=== PATIENT | male | born 2005 | race Caucasian/White ===

== ENCOUNTER 2024-06-28 16:24 | Observation (INO) ==
[2024-06-28] MEDS: SODIUM CHLORIDE 0.9% 1,000 ML IV ONE (17:18)
--- NOTE | 2024-06-28 17:19 | Emergency Department Note ---
Impression & Plan Acute hyponatremia, Diarrhea, Pneumonia, Failure of outpatient treatment, Adenoviral infection ED Provider Note NAME: ALTHEA Pérez WORKMASTER AGE: 18 SEX: M : 2005 ARRIVES VIA: Walk-In INFORMANT: [Patient] ED PROVIDER(S): [Salazar Ziegler MD] CHIEF COMPLAINT: Abnormal laboratories HISTORY OF PRESENT ILLNESS: The patient is a 18-year-old male who has been sick for almost 2 weeks. The patient did see a provider at [facility] 4 days ago and was placed on Augmentin for ear infections. He had a chest x-ray that was negative and a CBC that was negative. The patient had been suffering from a cough and fever. The patient has persisted with the same symptoms. Additionally, he now has developed diarrhea, he is having loose watery stools at least 10 times a day. He states the diarrhea really started after starting the Augmentin. He has had some nausea with occasional posttussive emesis. He states he still running a temperature, he is still coughing. He felt that the diarrhea may be from his Augmentin so he stopped taking this yesterday. The patient does complain of some diffuse abdominal pain, this has also been present since starting the Augmentin. He feels weak and washed out. As he was no better, he went back to [facility] today. There, laboratory work showed a sodium of 125, he was referred to the ER. PMHx/PSHx/Social Hx: See Below PHYSICAL EXAM: GENERAL: Patient is in no acute distress. HEENT: No acute trauma, normocephalic atraumatic, mucous membranes moist, no nasal congestion. Subtle throat erythema without exudate. Both TMs have some fluid behind the drums but no drum erythema. NECK: No stridor, no adenopathy, no meningismus, trachea is midline. LUNGS: Clear to auscultation bilaterally, no wheeze, no rhonchi, breath sounds equal. Moist cough noted. HEART: Without murmurs gallops or rubs, regular rate and rhythm. ABDOMEN: Soft, nontender, no peritonitis. EXTREMITIES: No cyanosis, full range of motion of all the joints without pain or difficulty. NEUROLOGIC: Oriented x 3, no acute motor or sensory deficits, no focal weakness. SKIN: No jaundice, no diaphoresis. DIFFERENTIAL DIAGNOSIS: Bronchitis or pneumonia, viral illness, C. difficile colitis, bacterial or viral intestinal infection, medication reaction, electrolyte imbalance, dehydration, among others. EMERGENCY DEPARTMENT PROCEDURES: MEDICAL DECISION MAKING: There is no leukocytosis or concerning anemia. There is a normal platelet count. No bandemia. Sodium is low at 129. No renal failure. No worrisome liver enzyme elevation. The patient appeared to be in a euthyroid state. Respiratory bio fire was positive for adenovirus. Chest x-ray shows a left lung pneumonia. Stool C. difficile and stool culture results are not yet available. Urinalysis results are not yet available. On exam, the patient was complaining of some fatigue. He was not toxic, he was not febrile. Patient received IV saline, 1 L. He was given IV ceftriaxone and IV Zithromax for his pneumonia. Patient has failed outpatient treatment. He is still coughing and running fevers. He is now hyponatremic. He is dehydrated. He has developed significant diarrhea, possibly from the Augmentin prescribed last week. Given the findings and the outpatient treatment failure, admission is warranted. I spoke with the patient and disability case manager. The on-call hospitalist was consulted. Prior/Outside records/notes reviewed: Outpatient [facility] notes describing his presentation, findings and need for ED referral. ECG per my interpretation: Indication was hyponatremia. The ECG shows a normal sinus rhythm with a rate of 75. There is no ST elevation, no PVCs. The QTc is 451. Continuous Cardiac Monitoring per my interpretation: An order was placed for continuous cardiac monitoring. The monitor shows a rate of 74 with normal sinus rhythm. Imaging/x-ray results per my interpretation: Chest x-ray appears to show a left lower lung pneumonia. Chronic Medical/Social conditions affecting care: None Care/Management discussed with: Case management and the on-call hospitalist. Level of care consideration(s): After review of the information above and other included data: --I believe the patient requires escalation of care to admission DISPOSITION: Admission Past Med/Surg History Problem List (Updated 06/28/24 @ 18:43 by Salazar Ziegler MD) Adenoviral infection (Acute) Failure of outpatient treatment (Acute) Pneumonia (Acute) Diarrhea (Acute) Acute hyponatremia (Acute) Medical History No significant medical problems Social History Smoking Status: Never smoker Feels Safe at Home: Yes Allergies Allergies Allergy/AdvReac Type Severity Reaction Status Date / Time No Known Allergies Allergy Unverified 06/28/24 17:17 Home Meds Home Medications Medication Instructions Recorded Confirmed No Known Home Medications 06/28/24 06/28/24 Results & Data (ED) Vital Signs Vital Signs - 24 hr 06/28/24 16:37 06/28/24 17:03 06/28/24 17:06 Temperature 36.9 C Temperature Source Temporal Artery Scan Pulse Rate 88 74 80 Pulse Rate [Apical] Pulse Rate from SpO2 Sensor 80 Respiratory Rate 18 15 Respiratory Effort / Characteristics Non-Labored Respiratory Depth Normal Respiratory Pattern Regular Blood Pressure 119/83 106/72 Blood Pressure [Right Arm] Blood Pressure Mean 95 83 Blood Pressure Mean [Right Arm] Pulse Oximetry 97 97 Oxygen Delivery Method Room Air Sepsis Recent Fever Within 48 Hours No Sepsis New/Unexplained Change in Mental Status N/A Sepsis Action Taken by Nursing No Action Required 06/28/24 18:13 Temperature Temperature Source Pulse Rate Pulse Rate [Apical] 82 Pulse Rate from SpO2 Sensor Respiratory Rate 18 Respiratory Effort / Characteristics Respiratory Depth Normal Respiratory Pattern Blood Pressure Blood Pressure [Right Arm] 121/77 Blood Pressure Mean Blood Pressure Mean [Right Arm] 91 Pulse Oximetry 93 Oxygen Delivery Method Room Air Sepsis Recent Fever Within 48 Hours Sepsis New/Unexplained Change in Mental Status Sepsis Action Taken by Correction Medications Current Medication List: was personally reviewed by me Laboratory Data Attestation: I reviewed the patient's lab results. 06/28/24 16:58 06/28/24 16:58 Lab Results 06/28/24 06/28/24 Range/Units 16:58 17:11 WBC 8.20 (4.8-10.8) K/ul RBC 6.06 (4.70-6.10) M/uL Hgb 17.0 (14.0-18.0) g/dl Hct 48.0 (42.0-52.0) % MCV 79.2 L (80.0-100.0) fL MCH 28.1 (25.0-34.0) pg MCHC 35.4 (32.0-36.0) g/dL RDW Std Deviation 33.2 L (36.4-46.3) fL RDW Coeff of Leena 11.7 (11.5-14.5) % Plt Count 144 (130-400) K/uL MPV 11.8 (9.4-12.4) fL Immature Gran % (Auto) 0.4 % Neut % (Auto) 76.1 % Lymph % (Auto) 15.9 % [place] % (Auto) 7.4 % Eos % (Auto) 0.0 % Baso % (Auto) 0.2 % Neut # (Auto) 6.24 (1.40-6.50) K/uL Lymph # (Auto) 1.30 (1.20-3.40) K/uL [place] # (Auto) 0.61 H (0.11-0.59) K/uL Eos # (Auto) 0.00 (0.00-0.50) K/uL Baso # (Auto) 0.02 (0.00-0.20) K/uL Immature Gran # (Auto) 0.03 (0.01-0.20) K/uL Sodium 129 L (136-145) mmol/L Potassium 3.7 (3.5-5.1) mmol/L Chloride 91 L (98-107) mmol/L Carbon Dioxide 31 (21-32) mmol/L Anion Gap 7 (3-11) BUN 12 (6-23) mg/dl Creatinine 1.06 (0.6-1.4) mg/dl Est Cr Clr Drug Dosing 101.2 ml/min eGFR 103.68 BUN/Creatinine Ratio 11.3 (10-20) Glucose 108 H (70-99(Fasting)) mg/dl Calcium 9.4 (8.6-10.3) mg/dl Phosphorus 3.7 (2.5-4.9) mg/dl Magnesium 2.1 (1.7-2.4) mg/dl Total Bilirubin 0.7 (0.2-1.0) mg/dl AST 51 H (13-39) U/L ALT 26 (7-52) U/L Alkaline Phosphatase 39 (34-104) U/L Total Protein 8.3 (6.0-8.3) gm/dl Albumin 4.5 (3.4-5.0) gm/dl Globulin 3.8 (2.5-4.0) gm/dl Albumin/Globulin Ratio 1.2 (0.9-2) TSH 3.133 (0.300-4.500) uIu/ml Adenovirus (PCR) DETECTED A (NotDetected) B. pertussis DNA (PCR) Not Detected (NotDetected) B.parapertussis DNA PCR Not Detected (NotDetected) C. pneumoniae DNA (PCR) Not Detected (NotDetected) Coronavirus OC43 (PCR) Not Detected (NotDetected) Coronavirus HKU1 (PCR) Not Detected (NotDetected) Coronavirus 229E (PCR) Not Detected (NotDetected) SARS-CoV-2 (PCR) Not Detected (NotDetected) Coronavirus NL63 (PCR) Not Detected (NotDetected) Human Metapneumovir PCR Not Detected (NotDetected) Influenza Type A (PCR) Not Detected (NotDetected) Influenza Type B (PCR) Not Detected (NotDetected) M. pneumoniae (PCR) Not Detected (NotDetected) Parainfluenza 1 (PCR) Not Detected (NotDetected) Parainfluenza 2 (PCR) Not Detected (NotDetected) Parainfluenza 3 (PCR) Not Detected (NotDetected) Parainfluenza 4 (PCR) Not Detected (NotDetected) RSV (PCR) Not Detected (NotDetected) Entero/Rhino (PCR) Not Detected (NotDetected) Administered Medications Discontinued Medications Sodium Chloride (Nss) 1,000 mls @ 999 mls/hr IV .Q1H1M ONE Stop: 06/28/24 18:04 Last Admin: 06/28/24 17:18 Dose: 999 mls/hr Documented By: BÁRBARA Ceftriaxone Sodium (Rocephin) 2,000 mg in 50 mls @ 100 mls/hr IV NOW STA Stop: 06/28/24 18:30 Last Admin: 06/28/24 18:11 Dose: 100 mls/hr Documented By: SILVIO Imaging Data Radiologist's Impression: Chest X-Ray 06/28/24 17:14 Clinical History: Cough Technique: A frontal view of the chest was obtained Findings: There is left lower lung alveolar consolidation. The heart size is within normal limits. No pleural effusion or pneumothorax is seen. The right lung appears clear No fracture is noted. No foreign body is seen Impression: Left lung pneumonia ACT 112: Positive. There are findings on this exam that require communication between the performing entity and the patient following Patient Test Result Information Act ([place] ACT 112) guidelines. Electronically signed by Anibal Ellison 06-28-2024 5:55 PM Discharge Plan Visit Data Chief Complaint: Abnormal Labs/Diagnostic Testing Stated Complaint: REF BY [facility],NEEDS AN IV ED Provider: Salazar Ziegler Discharge Problem: Acute hyponatremia, Diarrhea, Pneumonia, Failure of outpatient treatment, Adenoviral infection Patient Disposition: Admitted As Inpatient Condition: Fair Forms Stand Alone Forms: [id number] Prescriptions Prescriptions: No Action No Known Home Medications Referrals Referrals: PCP,NO [Physician] - Discharge Problem: Diarrhea Qualifiers: Diarrhea type: unspecified type Qualified Code(s): R19.7 - Diarrhea, unspecified Pneumonia Qualifiers: Pneumonia type: due to unspecified organism Laterality: left Lung location: l ower lobe of lung Qualified Code(s): J18.9 - Pneumonia, unspecified organism
[2024-06-28 17:29] LABS: Mean Corpuscular Hemoglobin 28.1 pg (25.0-34.0); Mean Corpuscular Hgb Conc 35.4 g/dL (32.0-36.0); Mean Corpuscular Volume 79.2 fL (80.0-100.0); Mean Platelet Volume 11.8 fL (9.4-12.4); Platelet Count 144 K/uL (130-400); RDW Coefficient of Variation 11.7 % (11.5-14.5); RDW Standard Deviation 33.2 fL (36.4-46.3); Red Blood Count 6.06 M/uL (4.70-6.10)
[2024-06-28 17:30] LABS: Albumin Globulin Ratio 1.2 (0.9-2); Albumin Level 4.5 gm/dl (3.4-5.0); BUN Creatinine Ratio 11.3 (10-20); Bilirubin,Total 0.7 mg/dl (0.2-1.0); Calcium 9.4 mg/dl (8.6-10.3); Creatinine Clr Calc Pharmacy 101.2 ml/min; Globulin 3.8 gm/dl (2.5-4.0); Magnesium 2.1 mg/dl (1.7-2.4); Phosphorus 3.7 mg/dl (2.5-4.9); Potassium 3.7 mmol/L (3.5-5.1); Total Protein 8.3 gm/dl (6.0-8.3)
[2024-06-28 17:36] LABS: Basophils # (auto) 0.02 K/uL (0.00-0.20); Basophils % (auto) 0.2 %; Immature Granulocytes # (auto) 0.03 K/uL (0.01-0.20); Immature Granulocytes % (auto) 0.4 %; Lymphocytes % (auto) 15.9 %; Monocytes # (auto) 0.61 K/uL (0.11-0.59); Monocytes % (auto) 7.4 %; Neutrophils # (auto) 6.24 K/uL (1.40-6.50); Neutrophils % (auto) 76.1 %
[2024-06-28 17:44] LABS: Thyroid Stimulating Hormone 3.133 uIu/ml (0.300-4.500)
--- NOTE | 2024-06-28 17:56 | XRay Report ---
Clinical History: Cough Technique: A frontal view of the chest was obtained Findings: There is left lower lung alveolar consolidation. The heart size is within normal limits. No pleural effusion or pneumothorax is seen. The right lung appears clear No fracture is noted. No foreign body is seen Impression: Left lung pneumonia ACT 112: Positive. There are findings on this exam that require communication between the performing entity and the patient following Patient Test Result Information Act ([place] ACT 112) guidelines. Electronically signed by Anibal Ellison 06-28-2024 5:55 PM
[2024-06-28] MEDS: cefTRIAXone SODIUM 2,000 MG/50 ML BAG IV STA (18:11)
[2024-06-28 18:20] LABS: Adenovirus PCR DETECTED (NotDetected); Bordetella parapertussis PCR Not Detected (NotDetected); Bordetella pertussis PCR Not Detected (NotDetected); Chlamydia pneumoniae PCR Not Detected (NotDetected); Coronavirus 229E PCR Not Detected (NotDetected); Coronavirus CoV-2 (COVID19)PCR Not Detected (NotDetected); Coronavirus HKU1 PCR Not Detected (NotDetected); Coronavirus NL63 PCR Not Detected (NotDetected); Coronavirus OC43PCR Not Detected (NotDetected); Human Metapneumovirus PCR Not Detected (NotDetected); Influenza A PCR Not Detected (NotDetected); Influenza B PCR Not Detected (NotDetected); Mycoplasma pneumoniae PCR Not Detected (NotDetected); Parainfluenza Virus 1 PCR Not Detected (NotDetected); Parainfluenza Virus 2 PCR Not Detected (NotDetected); Parainfluenza Virus 3 PCR Not Detected (NotDetected); Parainfluenza Virus 4 PCR Not Detected (NotDetected); Respiratory Syncytial VirusPCR Not Detected (NotDetected); Rhinovirus/Enterovirus PCR Not Detected (NotDetected)
[2024-06-28 18:42] LABS: Appearance Urine Clear (Clear); Bacteria Urine Automated None Seen (None Seen); Bilirubin Urine Negative (Negative); Blood Urine Trace (Negative); Cast Urine Automated 0-2 /lpf (0-2); Color Urine Yellow; Epithelial Cell Urine Auto 0-2 /hpf (0-2); Glucose Urine UA Negative (Negative); Ketones Urine Negative (Negative); Leukocyte Esterase Urine Negative (Negative); Nitrite Urine Negative (Negative); Protein Urine Negative (Negative); RBC Urine Automated 0-2 /hpf (0-2); Specific Gravity Urine 1.004 (1.000-1.030); Urobilinogen Urine Negative (Negative); WBC Urine Automated 0-5 /hpf (0-5)
--- NOTE | 2024-06-28 18:48 | History & Physical Report ---
Date of Service June 28, 2024 Assessment & Plan (1) Adenoviral infection: (2) Failure of outpatient treatment: (3) Pneumonia: (4) Acute hyponatremia: (5) Diarrhea: Plan 1) Pneumonia/ adenovirus infection - positive adenovirus infection on [employer] resp viral panel - CXR: left lung pneumonia - ceftriaxone, 2 g, q24hrs, IV 2) Diarrhea/ hyponatremia - LR, 125 mL/hr, IV, q8hr - stool panel pending, CBC AM labs - regular diet as tolerated 3) Transaminitis AST, 51; ALT, 26 (WNL) - CMP AM labs Code status: Full code Disposition: Med-Surg FENGI: regular VTE Prophylaxis: ambulation History of Present Illness Chief Complaint: Dyspnea Primary Care Provider: [facility] Patient started having diarrhea on , 4 days, ~ 10 episodes/day, and dyspnea the past few days. Patient notes he started coughing badly a few weeks ago. Patient feels like he has a lot of chest congestion but denies any in creased sputum production. Patient notes some chest pain when taking deep breaths in the center of the chest, denying palpitations. Patient endorses some post-tussive vomiting w/out nausea but denies abdominal pain, just noting some cramping associated w/ the diarrhea. Patient was prescribed Augmentin on at [facility] but stopped taking it on Friday because he felt like it wasn't working. Allergies Allergy/AdvReac Type Severity Reaction Status Date / Time No Known Allergies Allergy Unverified 06/28/24 17:17 Home Medications Medication Instructions Recorded Confirmed Type No Known Home Medications 06/28/24 06/28/24 History Past Med/Surg History Problem List (Updated 06/28/24 @ 18:43 by Salazar Ziegler MD) Adenoviral infection (Acute) Failure of outpatient treatment (Acute) Pneumonia (Acute) Diarrhea (Acute) Acute hyponatremia (Acute) Medical History No significant medical problems Social History Smoking Status: Never smoker Feels Safe at Home: Yes Review of Systems Constitutional: + fever (as high as 102.7 F), + chills, + body aches and + fatigue Ear, Nose, Mouth, Throat: + sore throat; no nasal congestion, no n river discharge and no sinus pain/pressure Respiratory: + cough, + chest congestion and + dyspne a; no hemoptysis and no wheezing Cardiovascular: + chest pain (w/ deep breaths); no palpi tations and no lightheadedness Gastrointestinal: + vomiting and + diarrhea/loose stools; no abdominal pain and no nausea diarrhea seems to have resolved over the last 4 hrs Genitourinary: no urinary frequency Neurologic: + headache(s); no tingling and no numbne ss Physical Exam Constitutional: WD/WN, vitals as above Respiratory: normal respiratory effort and + cough Auscultation: + crackles (base of the left lungs posteriorly); no wheezes Cardiovascular: RRR, no murmur, no edema Gastrointestinal (Abdomen): Inspection/Auscultation: abdomen normal to inspection and normal bowel sounds; abdomen not distended Percussion/Palpation: + abdomen tender Psychiatric: A+Ox3, euthymic affect Results & Data Results & Data Vital Signs (Past 12 Hours) Vital Signs Temp Pulse Pulse Resp BP BP Pulse Ox 06/28/24 18:13 82 18 121/77 93 06/28/24 17:06 80 15 106/72 97 06/28/24 17:03 74 06/28/24 16:37 36.9 C 88 18 119/83 97 O2 Del Method 06/28/24 18:13 Room Air 06/28/24 17:06 06/28/24 17:03 06/28/24 16:37 Room Air Diagnostic Findings Chest X-Ray 06/28/24 17:14 Clinical History: Cough Technique: A frontal view of the chest was obtained Findings: There is left lower lung alveolar consolidation. The heart size is within normal limits. No pleural effusion or pneumothorax is seen. The right lung appears clear No fracture is noted. No foreign body is seen Impression: Left lung pneumonia ACT 112: Positive. There are findings on this exam that require communication between the performing entity and the patient following Patient Test Result Information Act ([place] ACT 112) guidelines. Electronically signed by Anibal Ellison 06-28-2024 5:55 PM Supervising Physician Co-Signing Physician Notes I personally examined the patient and verified all abrams points of history and exam, discussed case, and agree with decision making with Dr Yarbrough feeling somewhat short of breath. Some coughing fits. About 10 episodes of diarrhea a day since starting the Augmentin, although no diarrhea since coming to the ER. Sent here because of low sodium. Vitals noted, in general he is awake and alert pleasant no distress. HEENT normocephalic atraumatic mucous membranes moist. Breathing unlabored no accessory muscle use good effort, coughing fit while in the room. Labs and diagnostics noted. Left lower lobe community-acquired pneumonia, antibiotic associated diarrhea, subsequent hyponatremiaswitch to IV antibiotics, check C. difficile, IV fluids, supportive care. Follow labs, anticipate rapid improvement. (3) Pneumonia Laterality: left Lung location: lower lobe of lung Pneumonia type: due to unspecified organism Qualified Code(s): J18.9 - Pneumonia, unspecified organism (5) Diarrhea Diarrhea type: unspecified type Qualified Code(s): R19.7 - Diarrhea, unspecified
[2024-06-28] MEDS: AZITHROMYCIN 500 MG/255 ML BAG IV ONE (19:17)
--- NOTE | 2024-06-28 19:44 | Billing Data ---
Date of Service June 28, 2024 Coding Level of Care Code 37050 INT INP/OBS CARE
[2024-06-28] MEDS ORDERED: ALUMINUM/MAGNESIUM SUSP 30 ML UDC PO PRN (22:12)
[2024-06-28] MEDS ORDERED: MAGNESIUM HYDROXIDE SUSP 30 ML UDC PO PRN (22:12)
[2024-06-28] MEDS ORDERED: POLYETHYLENE (MIRALAX) 17 GM PACK PO PRN (22:12)
[2024-06-28] MEDS ORDERED: MELATONIN 3 MG TAB PO PRN (22:12)
[2024-06-28] MEDS ORDERED: ONDANSETRON INJ 2 MG/ML 2 ML VIAL IV PRN (22:12)
[2024-06-28] MEDS: ACETAMINOPHEN 325 MG TAB PO PRN (22:26)
[2024-06-28] MEDS: LACTATED RINGER'S 1,000 ML IV SCH (22:26)
[2024-06-28 23:47] LABS: Adenovirus F 40/41 PCR Not Detected (NotDetected); Astrovirus PCR Not Detected (NotDetected); Campylobacter PCR Not Detected (NotDetected); Cryptosporidium PCR Not Detected (NotDetected); Cyclospora cayetanensis PCR Not Detected (NotDetected); Entamoeba histolytica PCR Not Detected (NotDetected); Enteroaggregative E.coli(EAEC) Not Detected (NotDetected); Enteropathogenic E.coli (EPEC) Not Detected (NotDetected); Enterotoxigenic E.coli (ETEC) Not Detected (NotDetected); Giardia lamblia PCR Not Detected (NotDetected); Norovirus GI/GII PCR Not Detected (NotDetected); Plesiomonas shigelloides PCR Not Detected (NotDetected); Rotavirus A PCR Not Detected (NotDetected); Salmonella PCR Not Detected (NotDetected); Sapovirus PCR Not Detected (NotDetected); Shiga-like Toxin E.coli (STEC) Not Detected (NotDetected); Shigella/Enteroinvasive E.coli Not Detected (NotDetected); Vibrio cholerae PCR Not Detected (NotDetected); Vibrio species PCR Not Detected (NotDetected); Yersinia enterocolitica PCR Not Detected (NotDetected)
[2024-06-29] MEDS: COUGH DROP (SUGAR FREE) LOZ 24 LOZ/1 BOX BUCCAL ONE (06:03)
[2024-06-29 06:18] LABS: Albumin Globulin Ratio 1.3 (0.9-2); Albumin Level 3.5 gm/dl (3.4-5.0); BUN Creatinine Ratio 12.9 (10-20); Bilirubin,Total 0.4 mg/dl (0.2-1.0); Calcium 8.1 mg/dl (8.6-10.3); Creatinine Clr Calc Pharmacy 126.1 ml/min; Globulin 2.8 gm/dl (2.5-4.0); Potassium 3.7 mmol/L (3.5-5.1); Total Protein 6.3 gm/dl (6.0-8.3)
[2024-06-29] MEDS: guaiFENesin/DEXTROM SYRUP 200MG/20MG 10ML UDC PO PRN (06:32)
[2024-06-29 06:47] LABS: Hematocrit (blood only) 39.8 % (42.0-52.0); Hemoglobin 14.1 g/dl (14.0-18.0); Mean Corpuscular Hemoglobin 28.4 pg (25.0-34.0); Mean Corpuscular Hgb Conc 35.4 g/dL (32.0-36.0); Mean Corpuscular Volume 80.1 fL (80.0-100.0); Mean Platelet Volume 12.5 fL (9.4-12.4); Platelet Count 124 K/uL (130-400); RDW Coefficient of Variation 11.9 % (11.5-14.5); RDW Standard Deviation 34.3 fL (36.4-46.3); Red Blood Count 4.97 M/uL (4.70-6.10); White Blood Count 7.32 K/ul (4.8-10.8)
[2024-06-29 06:51] LABS: Basophils # (auto) 0.01 K/uL (0.00-0.20); Basophils % (auto) 0.1 %; Echinocytes 2+; Immature Granulocytes # (auto) 0.03 K/uL (0.01-0.20); Immature Granulocytes % (auto) 0.4 %; Lymphocytes # (auto) 1.08 K/uL (1.20-3.40); Lymphocytes % (auto) 14.8 %; Monocytes # (auto) 0.65 K/uL (0.11-0.59); Monocytes % (auto) 8.9 %; Neutrophils # (auto) 5.55 K/uL (1.40-6.50); Neutrophils % (auto) 75.8 %; Ovalocytes 1+
--- NOTE | 2024-06-29 07:24 | Hospitalist Progress Note ---
Date of Service June 29, 2024 Assessment & Plan (1) Adenoviral infection: (2) Failure of outpatient treatment: (3) Pneumonia: (4) Acute hyponatremia: (5) Diarrhea: Plan 1) Pneumonia/ adenovirus infection - positive adenovirus infection on [employer] resp viral panel - CXR: left lung pneumonia --> consider repeat CXR tomorrow considering - continue ceftriaxone, 2 g, q24hrs, IV while inpatient - plan to discharge on Cefdinir 2) Diarrhea/ hyponatremia/borderline hypocalcemia - LR, 125 mL/hr, IV, q8hr - Na, 129 --> 131; Ca(c), 8.9 - stool panel, davidson-negative - regular diet as tolerated - repeat BMP tomorrow 3) Thrombocytopenia - Plts, 144 --> 124 - repeat CBC tomorrow 4) Transaminitis, improving AST, 51 --> 41; ALT, 26 --> 21 (WNL) 5) Hematuria - trace blood in urine upon admission - likely d/t myoglobin in urine, possibly from very mild rhabdo associated with illness Code status: Full code Disposition: Med-Surg FENGI: regular VTE Prophylaxis: ambulation Admission and Anticipated Discharge Date Admission Date: June 28, 2024 Supervising Physician Co-Signing Physician Notes I personally examined the patient and verified all abrams points of history and exam, discussed case, and agree with decision making with Dr Yarbrough feeling better but not yet well enough to go home. Vitals noted, in general he is awake and alert pleasant no distress. HEENT normocephalic atraumatic mucous membranes moist. Breathing unlabored no accessory muscle use good effort, L lower lung diminished w faint wheeze no rales no rhonchi. Labs and diagnostics noted. Left lower lobe community-acquired pneumonia, antibiotic associated diarrhea, subsequent hyponatremiaimproving. continue rocephin, IV fluids. repeat CXR (PA and lateral) in AM. hopefully home in AM Subjective Patient was seen and evaluated this morning. Was feeling much better than yesterday in terms of his respiratory symptoms and generalized weakness but his diarrhea had started again yesterday evening and patient is close to 10 episodes/day like he was prior to admission. Did not feel any fevers, chills, or sweats overnight. Review of Systems Constitutional: + fever (as high as 102.7 F), + chills, + body aches and + fatigue Ear, Nose, Mouth, Throat: + sore throat; no nasal congestion, no n river discharge and no sinus pain/pressure Respiratory: + cough, + chest congestion and + dyspne a (improving); no hemoptysis and no wheezing Cardiovascular: + chest pain (w/ deep breaths); no palpi tations and no lightheadedness Gastrointestinal: + diarrhea/loose stools; no abdominal pa in and no nausea diarrhea still w/ 10 episodes/day Genitourinary: no urinary frequency Neurologic: + headache(s); no tingling and no numbne ss Physical Exam Constitutional: WD/WN, vitals as above Respiratory: normal respiratory effort, + labored breathing and + cough Auscultation: + crackles (base of the left lungs posteriorly) and + wheezes (left base of lungs) Cardiovascular: RRR, no murmur, no edema Gastrointestinal (Abdomen): Inspection/Auscultation: abdomen normal to inspection and normal bowel sounds; abdomen not distended Percussion/Palpation: + abdomen tender Psychiatric: A+Ox3, euthymic affect Results & Data Results & Data Vital Signs (Past 12 Hours) Vital Signs Temp Pulse Pulse Pulse Resp BP BP 06/28/24 23:42 37.6 C H 85 06/28/24 22:37 06/28/24 22:20 38.1 C H 106 H 18 107/72 06/28/24 21:40 72 122/67 06/28/24 21:01 92 H 06/28/24 21:00 98 H 21 110/72 Pulse Ox O2 Del Method 06/28/24 23:42 95 Room Air 06/28/24 22:37 Room Air 06/28/24 22:20 97 Room Air 06/28/24 21:40 95 Room Air 06/28/24 21:01 06/28/24 21:00 95 Room Air (3) Pneumonia Laterality: left Lung location: lower lobe of lung Pneumonia type: due to unspecified organism Qualified Code(s): J18.9 - Pneumonia, unspecified organism (5) Diarrhea Diarrhea type: unspecified type Qualified Code(s): R19.7 - Diarrhea, unspecified
[2024-06-29 08:01] VITALS: RESP 16
[2024-06-29] MEDS: LOPERAMIDE HCL 2 MG CAP PO PRN (10:13)
[2024-06-29] MEDS: cefTRIAXone SODIUM 2,000 MG/50 ML BAG IV SCH (17:16)
--- NOTE | 2024-06-29 18:31 | Billing Data ---
Date of Service June 29, 2024 Coding Level of Care Code 73133 SUB INP/OBS CARE
[2024-06-29 21:56] VITALS: TEMP 98.1
--- NOTE | 2024-06-29 22:22 | Electrocardiogram Report ---
Test Reason : Blood Pressure : */* mmHG Vent. Rate : 75 BPM Atrial Rate : 75 BPM P-R Int : 176 ms QRS Dur : 100 ms QT Int : 404 ms P-R-T Axes : 65 82 46 degrees QTcB Int : 451 ms Normal sinus rhythm Normal ECG No previous ECGs available Confirmed by Jordan Sandoval ([id number]) on 06/29/2024 10:21:40 PM [facility] By: [facility] Confirmed By: Jordan Sandoval
[2024-06-30 06:10] LABS: Hematocrit (blood only) 40.6 % (42.0-52.0); Hemoglobin 13.9 g/dl (14.0-18.0); Mean Corpuscular Hemoglobin 28.1 pg (25.0-34.0); Mean Corpuscular Hgb Conc 34.2 g/dL (32.0-36.0); Platelet Count 121 K/uL (130-400); RDW Coefficient of Variation 12.4 % (11.5-14.5); Red Blood Count 4.95 M/uL (4.70-6.10); White Blood Count 4.83 K/ul (4.8-10.8)
[2024-06-30 06:25] LABS: BUN Creatinine Ratio 14.1 (10-20); Calcium 8.3 mg/dl (8.6-10.3); Potassium 3.8 mmol/L (3.5-5.1)
[2024-06-30 06:55] VITALS: BP 102/67; PULSE 71; O2SAT 97
--- NOTE | 2024-06-30 07:27 | Discharge Summary ---
Date of Service June 30, 2024 Admission HPI Per Admitting Provider Patient started having diarrhea on , 4 days, ~ 10 episodes/day, and dyspnea the past few days. Patient notes he started coughing badly a few weeks ago. Patient feels like he has a lot of chest congestion but denies any increased sputum production. Patient notes some chest pain when taking deep breaths in the center of the chest, denying palpitations. Patient endorses some post-tussive vomiting w/out nausea but denies abdominal pain, just noting some cramping associated w/ the diarrhea. Patient was prescribed Augmentin on at [facility] but stopped taking it on Friday because he felt like it wasn't working. This morning the patient continues to feel better when compared to admission, notes less coughing and fewer diarrhea episodes overnight which allowed him to sleep a lot better. Patient feels like today he's ready for discharge if we feel that he's ready. Prefers to have his meds sent to [facility] Admission Exam Per Admitting Provider Physical Exam Constitutional: WD/WN, vitals as above Respiratory: normal respiratory effort and + cough Auscultation: + crackles (base of the left lungs posteriorly); no wheezes Cardiovascular: RRR, no murmur, no edema Gastrointestinal (Abdomen): Inspection/Auscultation: abdomen normal to inspection and normal bowel sounds; abdomen not distended Percussion/Palpation: + abdomen tender Psychiatric: A+Ox3, euthymic affect Principal Diagnosis Pneumonia Hyponatremia (resolved) Discharge Exam Constitutional WD/WN, vitals as above Respiratory normal respiratory effort and + cough Auscultation: + crackles (base of the left lungs posteriorly) and + wheezes (left base of lungs) Cardiovascular RRR, no murmur, no edema Gastrointestinal (Abdomen) Inspection/Auscultation: abdomen normal to inspection and normal bowel sounds; abdomen not distended Percussion/Palpation: + abdomen tender Psychiatric A+Ox3, euthymic affect Discharge Data Allergies Allergy/AdvReac Type Severity Reaction Status Date / Time No Known Allergies Allergy Unverified 06/28/24 17:17 Consultations 06/28/24 18:08 ED Decision to Admit Stat Hospital Course (1) Adenoviral infection: (2) Failure of outpatient treatment: (3) Pneumonia: (4) Acute hyponatremia: (5) Diarrhea: Plan 1) Pneumonia/ adenovirus infection - positive adenovirus infection on [employer] resp viral panel - CXR: left lower lobe lung pneumonia --> repeat CXR this morning showed interval improvement - continued ceftriaxone, 2 g, q24hrs, IV while inpatient - Discharged patient on Cefdinir, 300 mg, PO, BID, for 5 days - Discharged patient on Albuterol, 1 inhalation/90 mcg, q6hr, PRN for dyspnea (d/t specific pt request) 2) Diarrhea/ hyponatremia/borderline hypocalcemia #resolved - LR, 125 mL/hr, IV, q8hr - Na, 129 --> 131 --> 138; Ca(c), 8.9 - stool panel, davidson-negative 3) Thrombocytopenia - Plts, 144 --> 124 --> 121 - repeat CBC as outpt in a week 4) Transaminitis, improving AST, 51 --> 41; ALT, 26 --> 21 (WNL) -repeat CMP as outpt in a week 5) Hematuria - trace blood in urine upon admission - likely d/t myoglobin in urine, possibly from very mild rhabdo associated with illness Total Time Total Time Spent Total Time Spent (In Minutes): see attending attestation Discharge Plan Discharge Items Patient Disposition: Home - Self-Care Reason For Visit: CAP, HYPONATREMIA Discharge Diagnosis: pneumonia, adenoviral infection Condition on Discharge: Fair Activity: Resume your previous activity Non-emergency contact: Primary Care Provider Call non-emergency contact if: you have any medication questions and your symptoms worsen Follow-up/Referrals: [facility] [Primary Care Provider] - Diet: Regular Addtl Attending Provider Instructions: You were admitted to the hospital for hyponatremia in the context of a pneumonia and a diarrheal illness. You were treated with IV ceftriaxone and IV fluids. A discharge summary will be sent to your primary care physician to ensure continuity of care. Please bring this discharge summary with you to your next office appointment so that your provider can review it at that time. Follow-up appointments: Make a follow-up appointment with your PCP within the next week. It is very important that you follow up with them shortly after discharge from the hospital. You will need to make sure you tell your PCP to do the following lab work when you see them: 1) CBC and a CMP. 2) You will also need to have your PCP order you a chest X-ray 3-4 weeks after discharge to monitor that the pneumonia and chest X-ray opacity associated with it has completely resolved. Medications: Your medication list has been reviewed and reconciled upon discharge to ensure accuracy and continuity of care. An updated list of all your medications is incl uded with your hospital discharge paperwork. Please review this list closely, and make note of any changes. We sent a new medication called Cefdinir to your pharmacy. Take Cefdinir, 300 mg, PO, BID, for 5 days. We sent a new medication called albuterol to your pharmacy. Take albuterol, 1 inh/90 mcg, q6hr, for shortness of breath. Take your medications as instructed; do not skip a dose of your medicines. Make sure all of your doctors know every medicine you are taking (including vnlw-dpg-tftnvrv medicines, vitamins, and supplements). Call your primary care provider before taking any new medicines (including luyy-ale-cqxrvmv medicines, vitamins, and supplements), because some of these may interact with your current medications, or may make your symptoms worse. Tell your primary care provider if you cannot afford your medications. CONTACT YOUR PRIMARY CARE PROVIDER if you experience any of the following: unresolved diarrhea, any easy bruising or bleeding continued shortness of breath, wheezing, fatigue Difficulty following your treatment plan, or difficulty taking medications CALL 911 OR GO TO THE EMERGENCY DEPARTMENT if you experience any of the following: Sudden, severe abdominal pain or nausea/vomiting Severe chest pain, or chest pain that radiates (moves) to your jaw or arm Sudden, severe shortness of breath or difficulty breathing Thank you for allowing us to participate in your care Pending Studies at Discharge: No Stand-Alone Forms: [facility], Work/School Release, Smoking Cessation Medications and DC Order Prescriptions: New cefdinir 300 mg capsule 300 mg PO Q12H 5 Days Qty: 10 0RF albuterol sulfate 90 mcg/actuation HFA aerosol inhaler 1 inh inhalation Q6H PRN (Reason: shortness of breath or wheezing) Qty: 6.7 0RF Discharge Orders: Discharge Order (Routine); Ordered 06/30/24 Ordered By: Donn Navarro/Other Patient Handouts: What Is Pneumonia?, Treating Pneumonia, When You Have Pneumonia Admission Data Admit Date/Time: 06/28/24 20:31 Attending Provider: Pablo Duffy Admit Provider: Pablo Duffy Primary Care Provider: [facility] Other Providers: Pablo Duffy Other Interventions: Discharge Summary Assessment (RN) Last Done: 06/30/24 10:56 Supervising Physician Co-Signing Physician Notes I personally examined the patient and verified all abrams points of history and exam, discussed case, and agree with decision making with Dr Yarbrough feels up to going home. Vitals noted, in general he is awake and alert pleasant no distress. HEENT normocephalic atraumatic mucous membranes moist. Breathing unlabored no accessory muscle use good effort. skin no rashes no pallor or icterus. CXR noted. Left lower lobe community-acquired pneumonia, antibiotic associated diarrhea, subsequent hyponatremiaimproving. finish PO abx. labs (CBC, CMP) and f/u CXR as outpt - likely all due to acute illness with mixed viral and secondary bacterial etiology - but will want to track to resolution for completeness otherwise as above
--- NOTE | 2024-06-30 09:08 | XRay Report ---
XR chest 2V PA/lateral CLINICAL HISTORY: f/u pneumonia COMPARISON STUDY: 06/28/2024 FINDINGS: Heart size and pulmonary vasculature are normal. There is patchy and hazy opacity at the le ft lower lung which is mildly improved. No other consolidation or pleural effusion. No pneumothorax. IMPRESSION: Persistent extensive pneumonia at the left lower lobe, mildly improved. Follow-up to res olution recommended. ACT 112: Negative or not required by law. Electronically signed by: Umer Longo M.D. 06/30/2024 9:07 AM
[2024-06-30] MEDS: CEFDINIR 300 MG CAP PO ONE (09:17)
--- NOTE | 2024-06-30 19:28 | Billing Data ---
Date of Service June 30, 2024 Coding Level of Care Code 71926 IN/OBS DISCH 30 MIN/LESS
== END 2024-06-30 11:13 | disposition home or self-care (01) ==
LOC: ED 16:24 → 3E 16:24